=== PATIENT | male | born 1930 | race Caucasian/White ===

== ENCOUNTER → 2016-04-20 | Outpatient (CLI) | payer BC ==
[~2016-04-20] MED LIST: ACET-24 PO; ACET325T96 PO; ALFU10TA30 PO; ATOR-24 PO; CLC100 PO; DLCS PR; LISI-729 PO; OXYC-57 PO; PRT40 PO; RXC5 PO; SAW450CA5 PO; SAWPOW; WARF2.5T8 PO
== END | disposition home or self-care (01) ==
LOC: C.LABMFLN 07:57
PROVIDERS: ATTEND Family Medicine
DX: R10.9 Unspecified abdominal pain (principal)

== ENCOUNTER → 2016-04-27 | Outpatient (CLI) | payer BC ==
[2016-04-27 13:32] LABS: INR 2.3 (0.9-1.1); PROTHROMBIN TIME (PATIENT) 25.1 SECONDS (9.0-12.0)
== END | disposition home or self-care (01) ==
LOC: C.LABMFLN 11:30
PROVIDERS: ATTEND Internal Medicine Cardiovascular Disease
DX: I48.92 Unspecified atrial flutter (principal)

== ENCOUNTER → 2016-06-25 | Outpatient (CLI) | payer BC ==
[~2016-06-25] MED LIST changes: +ALFU10TA2 PO; -ALFU10TA30 PO
[2016-06-25 13:21] LABS: INR 3.5 (0.9-1.1); PROTHROMBIN TIME (PATIENT) 39.2 SECONDS (9.0-12.0)
[2016-06-25 13:33] LABS: HEMATOCRIT 40.3 % (42-52); MEAN CELL VOLUME 97.8 fL (80-100); MEAN CORPUSCULAR HEMOGLOBIN 31.3 pg (25-34); MEAN PLATELET VOLUME 10.7 fL (7.4-10.4); PLATELET COUNT 177 K/uL (130-400); RED BLOOD COUNT 4.12 M/uL (4.7-6.1); WHITE BLOOD COUNT 7.05 K/uL (4.8-10.8)
[2016-06-25 14:14] LABS: ALT/SGPT 38 U/L (12-78); AST/SGOT 20 U/L (15-37); BLOOD UREA NITROGEN 19 mg/dl (7-18); BUN/CREATININE RATIO 26.2 (10-20); CALCIUM 8.4 mg/dl (8.5-10.1); CARBON DIOXIDE 27 mmol/L (21-32); CHLORIDE 109 mmol/L (98-107); CHOLESTEROL 102 mg/dl (0-200); CREATININE 0.72 mg/dl (0.60-1.40); GLUCOSE 80 mg/dl (70-99); SODIUM 144 mmol/L (136-145)
[2016-06-25 14:16] LABS: CHOLESTEROL/HDL RATIO 1.8; HDL CHOLESTEROL 56 mg/dl; LDL CHOLESTEROL CALCULATED 36 mg/dl; TRIGLYCERIDES 52 mg/dl (0-150); VERY LOW DENSITY LIPOPROT CALC 10 mg/dl
== END | disposition home or self-care (01) ==
LOC: C.LABMFLN 08:46
PROVIDERS: ATTEND Internal Medicine Cardiovascular Disease
DX: I48.92 Unspecified atrial flutter (principal); I71.2 Thoracic aortic aneurysm, without rupture; I25.10 Atherosclerotic heart disease of native coronary artery without angina pectoris; E78.00 Pure hypercholesterolemia, unspecified; I42.9 Cardiomyopathy, unspecified

== ENCOUNTER 2016-08-16 06:12 | Inpatient (IN) | payer BC, OTHER ==
[2016-07-18 09:55] VITALS: BMI 27.0
--- NOTE | 2016-07-18 10:27 | PAT Medication Instructions ---
Service Date July 18, 2016. Current Home Medication List Acetaminophen Tab (Tylenol), 650 MG PO TID PRN for Pain Alfuzosin Hcl (Uroxatral), 10 MG PO QPM Atorvastatin (Lipitor), 40 MG PO HS Lisinopril (Zestril), 5 MG PO QAM Saw Mayetta (Serenoa Repens) (Saw Mayetta), 450 MG PO QPM Warfarin Sod (Jantoven), 2.5 MG PO 2XWEEK Warfarin Sod (Jantoven), 1.25 MG PO 5XWEEK Medication Instructions For Your Scheduled Surgery -Instructions to be given by Cardiology: Warfarin Sod (Jantoven) - Hold the following medications 2 weeks prior to surgery: Saw Mayetta (Serenoa Repens) (Saw Mayetta), 450 MG PO QPM - Hold the following medications the morning of surgery: Lisinopril (Zestril), 5 MG PO QAM - Take the following medications the morning of surgery with a sip of water OTHERWISE NOTHING TO EAT OR DRINK AFTER MIDNIGHT: Acetaminophen Tab (Tylenol), 650 MG PO TID PRN for Pain (may take if needed up to 4 hours piror to surgery) - Take the following medications as scheduled the night before surgery: Alfuzosin Hcl (Uroxatral), 10 MG PO QPM Atorvastatin (Lipitor), 40 MG PO HS If you have any questions please call us at [phone] or [phone] or [phone]
[2016-07-18 11:25] LABS: BASO % 0.2 %; BASO ABS # 0.01 K/uL (0-0.2); COMPLETE YES; EOS % 1.9 %; HEMATOCRIT 41.8 % (42-52); LYMPH % 18.8 %; MEAN CELL VOLUME 98.8 fL (80-100); MEAN CORPUSCULAR HEMOGLOBIN 30.7 pg (25-34); MEAN CORPUSCULAR HGB CONC 31.1 g/dl (32-36); MEAN PLATELET VOLUME 10.9 fL (7.4-10.4); MONO % 13.1 %; PLATELET COUNT 159 K/uL (130-400); RED BLOOD COUNT 4.23 M/uL (4.7-6.1); WHITE BLOOD COUNT 5.33 K/uL (4.8-10.8)
[2016-07-18 11:27] LABS: URINE APPEARANCE CLEAR (CLEAR); URINE BILIRUBIN NEG (NEG); URINE COLOR YELLOW; URINE EPITHELIAL CELL AUTO 0-5 /lpf (0-5); URINE NITRITE NEG (NEG); URINE SPECIFIC GRAVITY 1.023 (1.000-1.030); UROBILINOGEN NEG (NEG); ZZUR CULT IF INDIC CLEAN CATCH NO
[2016-07-18 11:29] LABS: MANUAL MICROSCOPIC REQUIRED? NO; REVIEW REQ? NO
--- NOTE | 2016-07-18 11:31 | DIAGNOSTIC IMAGING REPORT ---
CHEST PREADMISSION(PA/LAT) CLINICAL HISTORY: Preoperative evaluation. COMPARISON STUDY: Chest CT December 24, 2014. FINDINGS: Lung volumes are normal. There is no pneumothorax or pleural effusion. There is no consolidation to suggest pneumonia. There is no evidence of pulmonary edema. Moderate cardiomegaly is unchanged. An aortic stent is partially imaged. IMPRESSION: 1. No acute cardiopulmonary findings. 2. Moderate cardiomegaly. Electronically signed by: Alberto Quan M.D. 07/18/2016 11:29 AM Dictated Date/Time: 07/18/2016 11:23 AM
[2016-07-18 11:35] LABS: INR 1.5 (0.9-1.1); PARTIAL THROMBOPLASTIN RATIO 1.2; PROTHROMBIN TIME (PATIENT) 16.7 SECONDS (9.0-12.0)
[2016-07-18 12:34] LABS: ESTIMATED AVERAGE GLUCOSE 123 mg/dl; HA1C FLAG Normal (Normal)
[2016-07-18 13:07] LABS: BUN/CREATININE RATIO 26.9 (10-20); CREATININE 0.85 mg/dl (0.60-1.40); POTASSIUM 4.2 mmol/L (3.5-5.1)
[2016-07-18 13:10] LABS: CALCIUM 8.7 mg/dl (8.5-10.1)
--- NOTE | 2016-08-15 10:44 | History and Physical ---
History & Physical Date Aug 15, 2016. Chief Complaint Right knee pain History of Present Illness The patient is a 86 year old male with complaints of Additional History Kidney Disease: Yes (kidney stones) Heart Disease: Yes (Atrial fibrillation/flutter) Other: Hyperlipidemia, enlarged prostate Allergies Coded Allergies: Penicillins (Verified Allergy, Unknown, HIVES, 07/18/16) Home Medications Scheduled Alfuzosin Hcl (Uroxatral), 10 MG PO QPM Atorvastatin (Lipitor), 40 MG PO HS Lisinopril (Zestril), 5 MG PO QAM Saw Berwind (Serenoa Repens) (Saw Berwind), 450 MG PO QPM Warfarin Sod (Jantoven), 2.5 MG PO 2XWEEK Warfarin Sod (Jantoven), 1.25 MG PO 5XWEEK Scheduled PRN Acetaminophen Tab (Tylenol), 650 MG PO TID PRN for Pain Physical Examination Skin: warm/dry Eyes: normal inspection, EOMI ENT: normal ENT inspection Head: normocephalic Neck: supple, no adenopathy Respiratory/Chest: lungs clear, normal breath sounds Cardiovascular: regular rate, rhythm Abdomen / GI: normal bowel sounds Extremities: normal inspection (Right knee neutrally aligned, medial and lateral joint line tenderness, ROM ~ 0-120) Neurologic/Psych: no motor/sensory deficits Addiitonal Comments: Xrays: 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
[~2016-08-16] VITALS: Ht 182.9 cm; Wt 92.4 kg
[2016-08-16] VITALS (8 sets, daily range): BP systolic 96–142; BP diastolic 59–107; PULSE 56–82; TEMP 36–37.2; O2SAT 94–100; Ht 182.9 cm; Wt 92.4 kg
[~2016-08-16 06:12] MED LIST changes: -ACET-24 PO; +ACETAMINOPHEN 500 MG TAB PO SCH; -ALFU10TA2 PO; +ALFU10TA30 PO; -CLC100 PO; +CLINDAMYCIN 600 MG/54 ML D5W 54 ML IV SCH; +CeleBREX 200 MG CAP PO SCH; +DEXAMETHASONE 4 MG TAB PO SCH; -DLCS PR; +FAMOTIDINE 20 MG TAB PO SCH; +GABAPENTIN 300 MG CAP PO SCH; +LACTATED RINGER'S 1000ML 1,000 ML IV SCH; +LACTATED RINGER'S 1000ML 500 ML IV ONE; +LACTATED RINGER'S 1000ML IV SCH; +METOCLOPRAMIDE HCL 10 MG TAB PO SCH; -OXYC-57 PO; +OXYCODONE HCL 10 MG TABCR (OXYCONTIN) PO SCH; -PRT40 PO; +ROPIVACAINE 5MG/ML 30 ML 150 MG, BUPIVACAINE/EPINEPHR 0.5% MPF 30 ML, KETOROLAC TROMETH... INFIL SCH; -RXC5 PO; -SAWPOW
[2016-08-16] MEDS ORDERED: BUPIVACAINE 0.5 % 5 MG/1 ML PF 10ML VIAL ONE (06:16)
[2016-08-16] MEDS ORDERED: BUPIVACAINE 0.25% 30 ML VIAL ONE (06:16)
[2016-08-16] MEDS ORDERED: ORTHO JOINT ANESTHETIC ONE (06:54)
[2016-08-16] MEDS ORDERED: POVIDONE-IODINE OP SOLN 30 ML BTL ONE ×2 (06:55→08:14)
[2016-08-16] MEDS ORDERED: MIDAZOLAM HCL 1 MG/ML 2ML VIAL ONE (06:55)
[2016-08-16] MEDS ORDERED: FENTANYL CITRATE INJ 50 MCG/1 ML 2 ML VIAL ONE (06:55)
[2016-08-16] MEDS ORDERED: BACITRACIN 50000 UNIT VIAL ONE (06:55)
[2016-08-16 07:05] LABS: INR 1.3 (0.9-1.1); PARTIAL THROMBOPLASTIN RATIO 1.1; PROTHROMBIN TIME (PATIENT) 13.5 SECONDS (9.0-12.0)
--- NOTE | 2016-08-16 07:15 | History & Physical Bridge Note ---
H&P Re-Evaluation Bridge Note: I have examined the patient, reviewed the History & Physical and in the interval since the performance of the History & Physical I have noted the following changes of clinical significance: No changes noted
[2016-08-16] MEDS ORDERED: HYDROmorphone INJ 2 MG/ML SYR/VIAL IV PRN (09:15)
[2016-08-16] MEDS ORDERED: PHENYLEPHRINE 100MCG/ML 5ML SYR IV PRN (09:15)
[2016-08-16] MEDS ORDERED: EpHEDrine SULFATE INJ 50 MG/ML AMP IV PRN (09:15)
[2016-08-16] MEDS ORDERED: ONDANSETRON INJ 2 MG/ML 2 ML VIAL IV PRN ×2 (09:15→09:45)
[2016-08-16] MEDS ORDERED: ATROPINE SULFATE 0.1 MG/ML 5ML SYR IV PRN (09:15)
--- NOTE | 2016-08-16 09:18 | [facility] Operative Report ---
Operative Report Operative Date Aug 16, 2016. Pre-Operative Diagnosis Right Knee Arthritis Procedure(s) Performed Patient's right leg was prepped and draped in usual sterile manner. The limb was exsanguinated with an Esmarch bandage and the tourniquet was inflated to 350 mmHg. Longitudinal incision was made some retained sutures up and dissected all masses usually hemostasis. A median parapatellar incision was made the patella was everted and he was flexed. Fat pad was removed and osteophytes removed and the medial face the tibia was cleared using a Warner elevator and a blunt Alonso. Next medullary alignment guide was placed and the proximal tibial cut was made using oscillating saw. The proximal tibial fragment was removed. Next the drill was utilized to gain access to the femoral canal. The intramedullary alignment guide was placed and a distal femoral cutting block was placed and a distal femoral cut was made at removal of the intramedullary alignment guide. This was removed and the guide was utilized to place drill holes for the femoral cutting guide. Size 5 femoral block was chosen and the distal femoral cuts were made. All bone fragments removed. Next the notch. Using the notch cutting guide. This bone was reserved and lamina inspector open die was utilized to expose the menisci was removed using sharp dissection. Remnants of the anterior cruciate ligament PCL were removed as well. Following this the proximal tibia was prepared using a punch and a mallet the size 5 tibial component was chosen and trial reduction was carried out with a size 11 polyethylene. Following this the patella was prepared for size 39 patella was chosen and sized to be used. All trials were removed joint mix was injected pulsatile irrigation used throughout the bone ends were dried and the final components were cemented into position. Following hardening the cement was closed using #1 Vicryl 0 Dexon and is applying sterile dressing of [place] was applied a Hemovac drain had been inserted Mr. Sweeney was utilized throughout the case including prepping and draping surgical scrub tech wound closure and dressing application. Surgeon Dr. Александр Nicholas Utility Tech Surgeon(s) Bert Sweeney PA-C Estimated Blood Loss 10ML Findings OA Specimens A. Right Knee Bone and Tissue I attest to the content of the Intraoperative Record and any orders documented therein. Any exceptions are noted below.
[2016-08-16] MEDS ORDERED: MAGNESIUM HYDROXIDE SUSP 30 ML UDC PO PRN (09:45)
[2016-08-16] MEDS ORDERED: BISACODYL 10 MG SUPP PR PRN (09:45)
[2016-08-16] MEDS ORDERED: ALUMINUM/MAGNESIUM/SIMETH (MAALOX MAX) 30 ML UDC PO PRN (09:45)
[2016-08-16] MEDS ORDERED: OXYCODONE HCL IR 5 MG TAB (IMMEDIATE RELEASE) PO PRN (09:45)
[2016-08-16] MEDS ORDERED: MoRPHine SULFATE 2 MG/ML CARP IV PRN (09:45)
[2016-08-16] MEDS ORDERED: TAMSULOSIN HCL 0.4 MG CAP PO PRN (09:45)
--- NOTE | 2016-08-16 11:06 | DIAGNOSTIC IMAGING REPORT ---
RIGHT KNEE 2 VIEWS History: Right total knee arthroplasty. Degenerative arthritis. Postop. FINDINGS: The patient is status post a right total knee arthroplasty. The hardware is intact. No fracture or dislocation. Skin kip and surgical drains are in place. IMPRESSION: Right total knee arthroplasty. No evidence for hardware complication. Electronically signed by: Matthew Walters M.D. 08/16/2016 11:05 AM Dictated Date/Time: 08/16/2016 11:04 AM
--- NOTE | 2016-08-16 11:52 | Anesthesiology Progress Note ---
Anesthesia Post Op Note Date & Time Aug 16, 2016 at 11:52 Vital Signs Pain Intensity: 5 Vital Signs Past 12 Hours Date Time Temp Pulse Resp B/P (MAP) Pulse Ox O2 Delivery O2 Flow Rate FiO2 08/16/16 10:50 36.8 75 16 115/85 96 Nasal Cannula 4 08/16/16 10:40 36.8 76 16 116/86 99 Nasal Cannula 4 08/16/16 10:30 76 16 115/81 98 Nasal Cannula 4 08/16/16 10:20 72 16 124/90 97 Nasal Cannula 4 08/16/16 10:00 73 16 130/86 96 Mask 10 08/16/16 09:50 73 16 132/81 98 Mask 10 08/16/16 09:40 36.8 64 16 125/72 98 Mask 10 08/16/16 06:50 36.5 82 20 142/107 94 Room Air Notes Mental Status: alert / awake / arousable, participated in evaluation Pt Amnestic to Procedure: Yes Nausea / Vomiting: adequately controlled Pain: adequately controlled Airway Patency, RR, SpO2: stable & adequate BP & HR: stable & adequate Hydration State: stable & adequate Anesthetic Complications: no major complications apparent
[2016-08-16] MEDS: D5W AND 1/2NSS + 20MEQ KCL 1,000 ML IV SCH ×2 (12:40→21:54)
[2016-08-16] MEDS: FERROUS GLUCONATE 324 MG TAB PO SCH ×2 (12:41→17:52)
[2016-08-16] MEDS: ACETAMINOPHEN 500 MG TAB PO SCH ×2 (14:06→21:56)
[2016-08-16] MEDS: CLINDAMYCIN IV 600 MG in DEXTROSE 5% 50ML 50 ML IV SCH ×2 (15:57→23:28)
[2016-08-16] MEDS ORDERED: WARFARIN SOD 2.5 MG TAB PO ONE (16:00)
[2016-08-16] MEDS: ALFUZosin TAB 10 MG TAB PO SCH (21:55)
[2016-08-16] MEDS: ATORVASTATIN 40 MG TAB PO SCH (21:56)
[2016-08-16] MEDS: DOCUSATE SODIUM 100 MG CAP PO SCH (21:56)
[2016-08-17] VITALS (9 sets, daily range): BP systolic 84–104; BP diastolic 52–66; PULSE 47–67; TEMP 36.3–36.5; O2SAT 92–97
[2016-08-17] MEDS: ACETAMINOPHEN 500 MG TAB PO SCH ×3 (05:37→22:00)
[2016-08-17 05:58] LABS: HEMATOCRIT 31.5 % (42-52); MEAN CELL VOLUME 95.7 fL (80-100); MEAN CORPUSCULAR HEMOGLOBIN 31.3 pg (25-34); MEAN CORPUSCULAR HGB CONC 32.7 g/dl (32-36); MEAN PLATELET VOLUME 11.4 fL (7.4-10.4); PLATELET COUNT 121 K/uL (130-400); RED BLOOD COUNT 3.29 M/uL (4.7-6.1); WHITE BLOOD COUNT 11.01 K/uL (4.8-10.8)
[2016-08-17 06:35] LABS: BUN/CREATININE RATIO 21.2 (10-20); CALCIUM 8.2 mg/dl (8.5-10.1); CREATININE 1.5 mg/dl (0.60-1.40); POTASSIUM 4.3 mmol/L (3.5-5.1)
[2016-08-17] MEDS: D5W AND 1/2NSS + 20MEQ KCL 1,000 ML IV SCH (07:56)
[2016-08-17] MEDS: PANTOprazole SOD 40 MG TAB PO SCH (08:14)
[2016-08-17] MEDS: LISINOPRIL 5 MG TAB PO SCH (08:14)
[2016-08-17] MEDS: FERROUS GLUCONATE 324 MG TAB PO SCH ×3 (08:14→17:42)
[2016-08-17] MEDS: DOCUSATE SODIUM 100 MG CAP PO SCH ×2 (08:15→20:34)
[2016-08-17] MEDS: MULTIVITAMIN TAB PO SCH (08:15)
--- NOTE | 2016-08-17 09:42 | Orthopedic Progress Note ---
Orthopedic Progress Note Date of Service Aug 17, 2016. Subjective Post OP Day: 1 Reports: feeling well Objective N/V intact, dressing C/D/I (Hemovac in place), toes mobile Date Time Temp Pulse Resp B/P (MAP) Pulse Ox O2 Delivery O2 Flow Rate FiO2 08/17/16 07:54 Room Air 08/17/16 07:16 36.4 50 18 98/63 (75) 95 08/17/16 05:41 103/61 (75) 08/17/16 03:25 36.3 55 14 92/53 (66) 94 Room Air 08/16/16 23:06 36.0 59 16 103/68 (80) 94 Room Air 08/16/16 20:45 Room Air 08/16/16 19:38 36.3 56 18 103/65 (78) 100 Nasal Cannula 4.0 08/16/16 19:37 99 Nasal Cannula 2.0 08/16/16 15:38 37.2 58 16 101/59 (73) 100 Nasal Cannula 4.0 08/16/16 15:37 Nasal Cannula 4.0 08/16/16 13:34 73 19 96/62 (73) 94 Nasal Cannula 4.0 08/16/16 12:19 73 18 124/85 (98) 97 Nasal Cannula 4.0 08/16/16 11:50 72 16 129/83 (98) 97 Nasal Cannula 4.0 08/16/16 11:20 Nasal Cannula 4.0 08/16/16 11:20 Nasal Cannula 4.0 08/16/16 10:50 36.8 75 16 115/85 96 Nasal Cannula 4 08/16/16 10:40 36.8 76 16 116/86 99 Nasal Cannula 4 08/16/16 10:30 76 16 115/81 98 Nasal Cannula 4 08/16/16 10:20 72 16 124/90 97 Nasal Cannula 4 08/16/16 10:00 73 16 130/86 96 Mask 10 08/16/16 09:50 73 16 132/81 98 Mask 10 Laboratory Results 24 Hours: Test 08/17/16 05:03 Hematocrit 31.5 % Hemoglobin 10.3 g/dL Assessment & Plan Assessment: 86 yo male stable POD #1 s/p right TKA Plan: 1. Med management 2. DVT prophylaxis- resume Coumadin, SCDs 3. PT/O 4. D/C planning- pt interested in [place]
[2016-08-17 11:37] LABS: INR 1.5 (0.9-1.1); PROTHROMBIN TIME (PATIENT) 16.7 SECONDS (9.0-12.0)
--- NOTE | 2016-08-17 11:52 | Discharge Instructions ---
Discharge Instructions Date of Service Aug 17, 2016. Admission Reason for Admission: Right Knee Osteoarthritis Discharge Discharge Diagnosis / Problem: Right knee arthritis Discharge Goals Goal(s): Decrease discomfort, Improve function Activity Recommendations Activity Limitations: as noted below Weightbearing Status: Right weightbearing (as tolerated) . Instructions / Follow-Up Instructions / Follow-Up ACTIVITY RECOMMENDATIONS: SELF CARE INSTRUCTIONS AFTER TOTAL KNEE REPLACEMENT A. You may need to continue a physical therapy program after discharge from the hospital. There are several options available to you. Your doctor will assist you in selecting the best one for you. 1. An out-patient facility 2 to 3 times a week for therapy or home therapy. 2. Continue working on all exercises taught to you in the hospital. Your goals should be to increase bending of your knee to 90 degrees and beyond and to fully straighten your knee. B. You may progress at your own pace from walking with a walker or crutches to a cane; then to no assistive devices. C. Make walking a part of your daily routine. Be up as much as comfortable with rest periods throughout the day. Rest with leg elevation is very important. Use the ice wrap frequently for the first 3-4 weeks. D. There are no restrictions on activities. You may ride in a car, shop, participate in communications executive and all social activities. E. Wear the long elastic stockings (LISA hose) 20 hours a day for 2 weeks after surgery. They can be removed several times a day for laundering and for a bath. F. You may shower, no tub baths until cleared by your doctor. SPECIAL CARE INSTRUCTIONS: VERY IMPORTANT TO READ AND REVIEW A. There are a few signs you need to watch for after you are home. Call [facility] if you notice any of the followin. Increased severe knee pain. Some pain is expected especially when you exercise. 2. Increased swelling in your leg or knee; pain or swelling of the calf muscle in either lower leg. 3. Any fluid drainage from the incision. 4. Shortness of breath or chest pain. B. Please call [facility] at if you have any concerns or questions about your operation or recovery. The doctor or his nurse will return your call promptly. C. You must take antibiotics before dental work, bladder, bowel or other surgery. Your doctor will provide you with a permanent care to carry describing this precaution. IMPORTANT: * REMEMBER TO TAKE ASPIRIN, 81 MG, TWICE DAILY FOR 4 WEEKS UNLESS OTHERWISE DIRECTED. THIS IS YOUR BLOOD THINNER. * HIGH RISK PATIENTS MAY BE PRESCRIBED A STRONGER BLOOD THINNER. THIS WILL BE PROVIDED AT DISCHARGE. * CALL IF INCREASED PAIN, REDNESS, DRAINAGE OR FEVER GREATER THAT 101. * WEAR LISA HOSE 20 HOURS PER DAY FOR 2 WEEKS. Silverlon- This is a large adhesive bandage that contains silver ions. This helps your incision heal by fighting off bacteria and protecting it from the outside environment. You are permitted to shower with this dressing. This will remain on your incision for 7 days and then should be removed. Some visible blood or drainage through the dressing window is normal. If there is significant drainage or leaking noted before the 7 days notify your doctor's office immediately. Once removed, keep incision clean and dry. If there is any drainage or redness noted, please call your surgeon. FOLLOW UP VISIT: If appointment is not already scheduled: Please call [facility] to make a follow-up appointment for 2 weeks after your surgery at . Current Hospital Diet Patient's current hospital diet: Regular Diet Discharge Diet Recommended Diet: Regular Diet Procedures Procedures Performed: Right Total Knee Arthroplasty Pending Studies Studies pending at discharge: no Laboratory Results Hemoglobin A1c Test 07/18/16 10:47 Range/Units Estimated Average Glucose 123 mg/dl Hemoglobin A1c 5.9 H 4.5-5.6 % Lipid Panel Test 06/25/16 10:35 Range/Units Triglycerides Level 52 0-150 mg/dl Cholesterol Level 102 0-200 mg/dl HDL Cholesterol 56 mg/dl Cholesterol/HDL Ratio 1.8 LDL Cholesterol, Calculated 36 mg/dl Medical Emergencies . Who to Call and When: Medical Emergencies: If at any time you feel your situation is an emergency, please call 911 immediately. . Non-Emergent Contact Non-Emergency issues call your: Surgeon Call Non-Emergent contact if: temperature is above 101.5, your pain is not controlled, wound has increased drainage, wound has increased redness . "Provider Documentation" section prepared by Jseus Ardon PA-C. . VTE Core Measure Inpt VTE Proph given/why not?: Warfarin (Coumadin), Naseem Da Silva, SCD's [place] Drug Monitoring Program Search Results: patient reviewed within database, no issues identified
[2016-08-17] MEDS ORDERED: LIDOCAINE HCL 2% JELLY 30 ML TUBE EXT ONE (13:49)
[2016-08-17] MEDS ORDERED: WARFARIN SOD 1 MG TAB PO SCH (16:00)
[2016-08-17] MEDS: ATORVASTATIN 40 MG TAB PO SCH (20:34)
[2016-08-17] MEDS: ALFUZosin TAB 10 MG TAB PO SCH (20:34)
[2016-08-18] MEDS: ACETAMINOPHEN 500 MG TAB PO SCH ×3 (05:47→21:25)
[2016-08-18 07:28] VITALS: BP 107/66; PULSE 62; TEMP 36.3; O2SAT 98
[2016-08-18 07:28] LABS: INR 1.6 (0.9-1.1); PROTHROMBIN TIME (PATIENT) 17.5 SECONDS (9.0-12.0)
[2016-08-18 08:26] LABS: BUN/CREATININE RATIO 28.5 (10-20); CALCIUM 8.2 mg/dl (8.5-10.1); CREATININE 1.1 mg/dl (0.60-1.40); POTASSIUM 4.1 mmol/L (3.5-5.1)
[2016-08-18] MEDS: FERROUS GLUCONATE 324 MG TAB PO SCH ×3 (08:48→17:30)
[2016-08-18] MEDS: PANTOprazole SOD 40 MG TAB PO SCH (08:49)
[2016-08-18] MEDS: DOCUSATE SODIUM 100 MG CAP PO SCH ×2 (08:49→21:25)
[2016-08-18] MEDS: MULTIVITAMIN TAB PO SCH (08:49)
[2016-08-18] MEDS: LISINOPRIL 5 MG TAB PO SCH (08:49)
--- NOTE | 2016-08-18 08:56 | Orthopedic Progress Note ---
Orthopedic Progress Note Date of Service Aug 18, 2016. Subjective Post OP Day: 2 Reports: feeling well, Denies: chest pain, SOB, nausea / vomiting, light headedness, calf pain Objective calves soft nontender, N/V intact, dressing C/D/I, A&O x3, toes mobile Date Time Temp Pulse Resp B/P (MAP) Pulse Ox O2 Delivery O2 Flow Rate FiO2 08/18/16 07:28 36.3 62 19 107/66 (80) 98 Room Air 08/17/16 23:45 Room Air 08/17/16 23:06 36.5 57 22 101/65 (77) 97 Room Air 08/17/16 20:27 67 100/66 (77) 08/17/16 15:35 96 Room Air 08/17/16 14:55 36.3 53 16 104/58 (73) 96 Room Air 08/17/16 11:45 36.3 60 18 90/52 (65) 92 Room Air 08/17/16 10:56 47 Laboratory Results 24 Hours: Test 08/17/16 11:14 08/18/16 07:04 Prothromb Time International Ratio 1.5 1.6 Prothrombin Time 16.7 SECONDS 17.5 SECONDS Assessment & Plan Assessment: 86 yo male stable POD #2 s/p right TKA Plan: 1. Med management 2. DVT prophylaxis- resume Coumadin, SCDs 3. PT/O 4. D/C planning- pt interested in [place] or [facility]; waiting on authorization. Inhouse Planning Pain Management: Ultram, Morphine, PO Tylenol, Oxy IR DVT Prophylaxis: TEDs, SCDs, Coumadin Discharge Planning Discharge Planning: snf facility Pain Management: PO Tylenol, Oxy IR DVT Prophylaxis: TEDs, Coumadin Therapy: Physical Therapy
--- NOTE | 2016-08-18 09:03 | Discharge Instructions ---
Discharge Instructions Date of Service Aug 18, 2016. Admission Reason for Admission: Right Knee Osteoarthritis Discharge Discharge Diagnosis / Problem: Right Knee Djd Discharge Goals Goal(s): Decrease discomfort, Improve function Activity Recommendations Activity Level: Assistance Required Therapies: Physical Therapy (TKA Protocol), Occupational Therapy (ADL's and transfers) Weightbearing Status: Right weightbearing (as tolerated) . Additional Information Patient informed of condition: Yes Advance Directives: Yes DNR: No Level of Care: Skilled Communicable Disease: No Prognosis: Stable Moran Catheter: No Instructions / Follow-Up Instructions / Follow-Up ACTIVITY RECOMMENDATIONS: SELF CARE INSTRUCTIONS AFTER TOTAL KNEE REPLACEMENT A. You may need to continue a physical therapy program after discharge from the hospital. There are several options available to you. Your doctor will assist you in selecting the best one for you. 1. An out-patient facility 2 to 3 times a week for therapy or home therapy. 2. Continue working on all exercises taught to you in the hospital. Your goals should be to increase bending of your knee to 90 degrees and beyond and to fully straighten your knee. B. You may progress at your own pace from walking with a walker or crutches to a cane; then to no assistive devices. C. Make walking a part of your daily routine. Be up as much as comfortable with rest periods throughout the day. Rest with leg elevation is very important. Use the ice wrap frequently for the first 3-4 weeks. D. There are no restrictions on activities. You may ride in a car, shop, participate in deer farm worker and all social activities. E. Wear the long elastic stockings (LISA hose) 20 hours a day for 2 weeks after surgery. They can be removed several times a day for laundering and for a bath. F. You may shower, no tub baths until cleared by your doctor. SPECIAL CARE INSTRUCTIONS: VERY IMPORTANT TO READ AND REVIEW A. There are a few signs you need to watch for after you are home. Call [facility] if you notice any of the followin. Increased severe knee pain. Some pain is expected especially when you exercise. 2. Increased swelling in your leg or knee; pain or swelling of the calf muscle in either lower leg. 3. Any fluid drainage from the incision. 4. Shortness of breath or chest pain. B. Please call [facility] at if you have any concerns or questions about your operation or recovery. The doctor or his nurse will return your call promptly. C. You must take antibiotics before dental work, bladder, bowel or other surgery. Your doctor will provide you with a permanent care to carry describing this precaution. IMPORTANT: * CONTINUE YOUR COUMADIN DAILY AND HAVE YOUR INR CHECKED REGULARLY. * CALL IF INCREASED PAIN, REDNESS, DRAINAGE OR FEVER GREATER THAT 101. * WEAR LISA HOSE 20 HOURS PER DAY FOR 2 WEEKS. * Silverlon- This is a large adhesive bandage that contains silver ions. This helps your incision heal by fighting off bacteria and protecting it from the outside environment. You are permitted to shower with this dressing. This will remain on your incision for 7 days and then should be removed. Some visible blood or drainage through the dressing window is normal. If there is significant drainage or leaking noted before the 7 days notify your doctor's office immediately. Once removed, keep incision clean and dry. If there is any drainage or redness noted, please call your surgeon. . FOLLOW UP VISIT: If appointment is not already scheduled: Please call [facility] to make a follow-up appointment for 2 weeks after your surgery at . Current Hospital Diet Patient's current hospital diet: Regular Diet Discharge Diet Recommended Diet: Regular Diet Procedures Procedures Performed: Right Total Knee Arthroplasty Pending Studies Studies pending at discharge: no Physician Orders On Transfer Dressing Changes: Silverlon dressing change as per above instructions Vital Signs: routine Laboratory Results Hemoglobin A1c Test 07/18/16 10:47 Range/Units Estimated Average Glucose 123 mg/dl Hemoglobin A1c 5.9 H 4.5-5.6 % Lipid Panel Test 06/25/16 10:35 Range/Units Triglycerides Level 52 0-150 mg/dl Cholesterol Level 102 0-200 mg/dl HDL Cholesterol 56 mg/dl Cholesterol/HDL Ratio 1.8 LDL Cholesterol, Calculated 36 mg/dl Medical Emergencies . Who to Call and When: Medical Emergencies: If at any time you feel your situation is an emergency, please call 911 immediately. . Non-Emergent Contact Non-Emergency issues call your: Surgeon Call Non-Emergent contact if: temperature is above 101.5, your pain is not controlled, your pain is worsening, wound has increased drainage, wound has increased redness . . "Provider Documentation" section prepared by Bert Sweeney. . Core Measure Problem Core Measures: None [place] Drug Monitoring Program Search Results: patient reviewed within database, no issues identified
[2016-08-18] MEDS ORDERED: CLC100 PO (09:06)
[2016-08-18] MEDS ORDERED: DLCS PR (09:06)
[2016-08-18] MEDS ORDERED: RXC5 PO (09:06)
[2016-08-18] MEDS ORDERED: PRT40 PO (09:06)
[2016-08-18] MEDS ORDERED: ACET-24 PO (09:06)
[2016-08-18 15:42] VITALS: BP 103/62; PULSE 56; TEMP 36.4; O2SAT 99
[2016-08-18] MEDS ORDERED: WARFARIN SOD 2 MG TAB PO SCH (16:00)
[2016-08-18] MEDS: TRAMADOL HCL 50 MG TAB PO PRN ×2 (19:38→23:42)
[2016-08-18] MEDS: ATORVASTATIN 40 MG TAB PO SCH (21:25)
[2016-08-18] MEDS: ALFUZosin TAB 10 MG TAB PO SCH (21:25)
[2016-08-18 22:47] VITALS: BP 91/51; PULSE 66; TEMP 36.5; O2SAT 94
[2016-08-19 05:41] LABS: INR 1.6 (0.9-1.1); PROTHROMBIN TIME (PATIENT) 16.9 SECONDS (9.0-12.0)
[2016-08-19] MEDS: ACETAMINOPHEN 500 MG TAB PO SCH ×3 (05:49→21:34)
[2016-08-19 07:09] VITALS: BP 96/61; PULSE 64; TEMP 36.3; O2SAT 98
--- NOTE | 2016-08-19 08:17 | Orthopedic Progress Note ---
Orthopedic Progress Note Date of Service Aug 19, 2016. Subjective Post OP Day: 3 Reports: feeling well, pain controlled w PO medications, Denies: chest pain, SOB , nausea / vomiting, light headedness Additional Notes: Had some heel pain in the right heel overnight but is much better now since keeping it off of the bed. Objective calves soft nontender, N/V intact, dressing C/D/I, A&O x3, toes mobile Right heel NT; no obvious breakdown Date Time Temp Pulse Resp B/P (MAP) Pulse Ox O2 Delivery O2 Flow Rate FiO2 08/19/16 08:00 Room Air 08/19/16 07:09 36.3 64 19 96/61 (73) 98 Room Air 08/18/16 23:15 Room Air 08/18/16 22:47 36.5 66 16 91/51 (64) 94 Room Air 08/18/16 15:42 36.4 56 18 103/62 (76) 99 Room Air 08/18/16 15:30 Room Air 08/18/16 09:03 Room Air Laboratory Results 24 Hours: Test 08/19/16 05:08 Prothromb Time International Ratio 1.6 Prothrombin Time 16.9 SECONDS Assessment & Plan Assessment: 86 yo male stable POD #3 s/p right TKA Plan: Med management DVT prophylaxis- Coumadin, SCDs PT/OT D/C planning- pt interested in [place] or [facility]; waiting on authorization. Likely Saturday? Inhouse Planning Pain Management: Ultram, Morphine, PO Tylenol, Oxy IR DVT Prophylaxis: TEDs, SCDs, Coumadin Discharge Planning Discharge Planning: shelter facility Pain Management: PO Tylenol, Oxy IR DVT Prophylaxis: TEDs, Coumadin Therapy: Physical Therapy
[2016-08-19] MEDS: DOCUSATE SODIUM 100 MG CAP PO SCH ×2 (09:31→21:33)
[2016-08-19] MEDS: PANTOprazole SOD 40 MG TAB PO SCH (09:31)
[2016-08-19] MEDS: MULTIVITAMIN TAB PO SCH (09:31)
[2016-08-19] MEDS: FERROUS GLUCONATE 324 MG TAB PO SCH ×3 (09:31→18:31)
[2016-08-19] MEDS: LISINOPRIL 5 MG TAB PO SCH (09:32)
[2016-08-19 15:10] VITALS: BP 108/71; PULSE 61; TEMP 36.4; O2SAT 98
[2016-08-19] MEDS ORDERED: WARFARIN SOD 3 MG TAB PO SCH (16:00)
[2016-08-19] MEDS: ATORVASTATIN 40 MG TAB PO SCH (21:33)
[2016-08-19] MEDS: ALFUZosin TAB 10 MG TAB PO SCH (21:33)
[2016-08-19 23:03] VITALS: BP 123/77; PULSE 72; TEMP 36.7; O2SAT 98
[2016-08-20] MEDS: ACETAMINOPHEN 500 MG TAB PO SCH (05:37)
[2016-08-20 06:54] VITALS: BP 115/73; PULSE 76; TEMP 36.3; O2SAT 95
[2016-08-20] MEDS: FERROUS GLUCONATE 324 MG TAB PO SCH (07:24)
[2016-08-20] MEDS: MULTIVITAMIN TAB PO SCH (07:25)
[2016-08-20] MEDS: DOCUSATE SODIUM 100 MG CAP PO SCH (07:25)
[2016-08-20] MEDS: PANTOprazole SOD 40 MG TAB PO SCH (07:25)
[2016-08-20] MEDS: LISINOPRIL 5 MG TAB PO SCH (07:26)
--- NOTE | 2016-08-20 07:38 | Urology Consultation ---
History General Date of Service: Aug 20, 2016. Chief Complaint: urinary retention Primary Care Physician: Gonzalo Gutiérrez M.D. Pt seen a urologist before?: Yes (Dr. Khan) If yes, why?: BPH History of Present Illness 86 yo male s/p right TKA. consulted for post-op UR. The pt has a hx of BPH for which he last saw Dr. Khan in September 2015. He is currently on alfuzosin at home. Attempted TOV yesterday, but rodriges catheter replaced after the pt had difficulty voiding. PVR ~300ml noted. Rodriges in place, draining clear, yellow urine this morning. The pt does report some baseline frequency, dribbling, and nocturia 3x per night at home. Laboratory Labs were reviewed and are within normal limits unless listed below. Labs are available in the chart and at [facility] Past History BPH, coronary artery disease, high cholesterol, kidney stones, osteoarthritis, other (a-flutter, AAA, iliac artery aneurysm, cardiomyopathy) Past Surgical History: TKR (right), other (endovascular repair of AAA and iliac artery aneurysm ) Family History diabetes, bone cancer, prostate cancer Social History Hx Tobacco Use In Past Year?: No Smoking: non-smoker Marital status: Housing status: lives with family Occupation status: retired Allergies Coded Allergies: Penicillins (Verified Allergy, Unknown, HIVES, 08/16/16) Medications Home Medications: Home Meds and Scripts Medications Dose Route/Sig Max Daily Dose Days Date Category Dose Instructions Pantoprazole Sodium (Pantoprazole) 40 Mg Tab 40 Mg PO QAM 10 08/18/16 Rx Docusate Sodium 100 Mg Cap 100 Mg PO BID 10 08/18/16 Rx Bisac-Evac (Bisacodyl) 10 Mg Supp 10 Mg IN DAILY PRN 10 08/18/16 Rx Oxycodone HCl 5 Mg Tab 5-10 Mg PO Q4H PRN 08/18/16 Rx Sb Non-Aspirin Extra Stre (Acetaminophen) 500 Mg Tab 1,000 Mg PO Q8H 30 08/18/16 Rx Uroxatral (Alfuzosin HCl) 10 Mg Tab 10 Mg PO QPM 07/18/16 Reported Jantoven (Warfarin Sodium) 2.5 Mg Tab 1.25 Mg PO 5XWEEK 07/18/16 Reported Saturday PM [place] ([place] ([place]ren[place] Repens)) 450 Mg Cap 450 Mg PO QPM 07/18/16 Reported Zestril (Lisinopril) 5 Mg Tab 5 Mg PO QAM 07/18/16 Reported Tylenol (Acetaminophen) 325 Mg Tab 650 Mg PO TID PRN 07/13/14 Reported Lipitor (Atorvastatin Calcium) 40 Mg Tab 40 Mg PO HS 07/13/14 Reported Jantoven (Warfarin Sodium) 2.5 Mg Tab 2.5 Mg PO 2XWEEK 07/13/14 Reported Saturdays PM Inpatient Medications: Current Inpatient Medications Medications (Trade) Dose Ordered Sig/Adam Route Start Time Stop Time Status Last Admin Dose Admin Alfuzosin HCl (Uroxatral Tab) 10 mg QPM PO 08/16/16 21:00 09/15/16 20:59 08/19/16 21:33 10 MG Atorvastatin Calcium (Lipitor Tab) 40 mg HS PO 08/16/16 21:00 09/15/16 20:59 08/19/16 21:33 40 MG Lisinopril (Zestril Tab) 5 mg QAM PO 08/17/16 09:00 09/16/16 08:59 08/19/16 09:32 5 MG Morphine Sulfate (MoRPHine SULFATE INJ) 2 mg Q4HWA PRN IV 08/16/16 09:45 08/30/16 09:44 Oxycodone HCl (Roxicodone Immediate Rel Tab) 1 TABLET FOR PAIN RATING... Q4H PRN PO 08/16/16 09:45 08/30/16 09:44 Acetaminophen (Tylenol Tab) 1,000 mg Q8H PO 08/16/16 14:00 09/15/16 09:44 08/20/16 05:37 1,000 MG Magnesium Hydroxide (Milk Of Magnesia Susp) 30 ml Q6H PRN PO 08/16/16 09:45 09/15/16 09:44 Bisacodyl (Dulcolax Supp) 10 mg DAILY PRN IN 08/16/16 09:45 09/15/16 09:44 Docusate Sodium (coLACE CAP) 100 mg BID PO 08/16/16 21:00 09/15/16 20:59 08/19/16 21:33 100 MG Al Hydrox/Mg Hydrox/Simethicone (Maalox Max Susp) 15 ml Q4H PRN PO 08/16/16 09:45 09/15/16 09:44 Multivitamins (Multivitamin Tab) 1 tab QAM PO 08/17/16 09:00 09/16/16 08:59 08/19/16 09:31 1 TAB Ondansetron HCl (Zofran Inj) 4 mg Q6H PRN IV 08/16/16 09:45 09/15/16 09:44 Ferrous Gluconate (Ferrous Gluconate Tab) 324 mg TIDM PO 08/16/16 12:30 09/15/16 12:29 08/19/16 18:31 324 MG Pantoprazole Sodium (Protonix Tab) 40 mg QAM PO 08/17/16 09:00 09/16/16 08:59 08/19/16 09:31 40 MG Tramadol HCl (Ultram Tab) 1 tablet for pain rating... Q4H PRN PO 08/16/16 09:45 09/15/16 09:44 08/18/16 23:42 100 MG Review of Systems Review of Systems Constitutional: No fever, No chills Eyes: No double vision Neurological: No dizzy Endocrine: No excessive thirst Gastrointestinal: No abdominal pain, No nausea, No vomiting Cardiovascular: No chest pain Respiratory: No shortness of breath Skin: No rash Musculoskeletal: + arthritis Male : + urinary retention, No blood in urine Physical Exam Vital Signs: Vital Signs Past 12 Hours Date Time Temp Pulse Resp B/P (MAP) Pulse Ox O2 Delivery O2 Flow Rate FiO2 08/20/16 06:54 36.3 76 16 115/73 (87) 95 Room Air 08/20/16 00:00 Room Air 08/19/16 23:03 36.7 72 16 123/77 (92) 98 Room Air Physical Exam: General Appearance: no apparent distress Eyes: bilateral eyes normal inspection ENT: hearing grossly normal Neck: no JVD Respiratory/Chest: no respiratory distress, no accessory muscle use Cardiovascular: no JVD Extremities: normal inspection, + pertinent finding (dressing to right knee) Neurologic/Psychiatric: alert, normal mood/affect, oriented x 3 Skin: normal color Assessment & Plan Assessment & Plan A/P: BPH with urinary retention AFVSS. Will send a UC&S. Plan to leave rodriges catheter in place x 1 week. Will arrange for outpatient trial of void at that time. Continue Uroxatral. Thanks for the consult. Pt OK for d/c from [facility]. Thanks for allowing us to participate in this pt's care. Will arrange for outpatient f/u. Recall PRN issues.
--- NOTE | 2016-08-20 09:09 | Orthopedic Progress Note ---
Orthopedic Progress Note Date of Service Aug 20, 2016. Subjective Post OP Day: 4 Reports: feeling well, complaints (some knee pain this AM with ambulation; NT at rest ), Denies: chest pain, SOB, nausea / vomiting, light headedness, calf pain Additional Notes: Pt feeling well this AM. Seen by Urology this AM. No new complaints. Knee with some pain with ambulation but overall he states the knee is doing ok. Objective calves soft nontender, N/V intact, dressing C/D/I (Silverlon intact), A&O x3, toes mobile Sitting at bedside in chair. Knee flexed to approximately 90 degrees. Date Time Temp Pulse Resp B/P (MAP) Pulse Ox O2 Delivery O2 Flow Rate FiO2 08/20/16 07:25 Room Air 08/20/16 06:54 36.3 76 16 115/73 (87) 95 Room Air 08/20/16 00:00 Room Air 08/19/16 23:03 36.7 72 16 123/77 (92) 98 Room Air 08/19/16 15:15 Room Air 08/19/16 15:10 36.4 61 16 108/71 (83) 98 Room Air 08/19/16 10:25 36.3 64 19 98 Room Air Assessment & Plan Assessment: 86 yo male stable POD #3 s/p right TKA Urinary Retention - h/o BPH Plan: Appreciate Urology consult. Plan to keep rodriges for 1 week and f/u with Dr Khan. DVT prophylaxis- Coumadin, SCDs PT/OT D/C planning- Ok for discharge to SNF today. Inhouse Planning Pain Management: Ultram, Morphine, PO Tylenol, Oxy IR DVT Prophylaxis: TEDs, SCDs, Coumadin Discharge Planning Discharge Planning: retirement facility Pain Management: PO Tylenol, Oxy IR DVT Prophylaxis: TEDs, Coumadin Therapy: Physical Therapy
--- NOTE | 2016-08-20 11:40 | Discharge Summary ---
Orthopedic Discharge Summary Admission Date/Reason Aug 16, 2016 at 07:10 Right Knee Osteoarthritis. Discharge Date/Disposition Aug 20, 2016 [facility] facility Diagnosis Principal Diagnosis: Right Knee Djd Secondary Diagnoses/Problems: Urinary Retention with h/o BPH, AFib, Hyperlipdemia Procedure(s) Performed Right TKA Consultations Joyce GODWIN/Dr Khan Medication Reconciliation New Medications: Acetaminophen (Sb Non-Aspirin Extra Stre) 500 Mg Tab 1000 MG PO Q8H for 30 Days, #180 TAB Bisacodyl (Bisac-Evac) 10 Mg Supp 10 MG DC DAILY PRN for Constipation for 10 Days, SUPP Docusate Sodium (Docusate Sodium) 100 Mg Cap 100 MG PO BID for 10 Days, #20 CAP Oxycodone HCl (Oxycodone HCl) 5 Mg Tab 5-10 MG PO Q4H PRN for Pain, #60 TAB Pantoprazole (Pantoprazole Sodium) 40 Mg Tab 40 MG PO QAM for 10 Days, #10 TAB Continued Medications: Alfuzosin Hcl (Uroxatral) 10 Mg Tab 10 MG PO QPM, TAB Atorvastatin (Lipitor) 40 Mg Tab 40 MG PO HS, TAB Lisinopril (Zestril) 5 Mg Tab 5 MG PO QAM, TAB Saw [place] (Serenoa Repens) (Saw [place]) 450 Mg Cap 450 MG PO QPM Warfarin Sod (Jantoven) 2.5 Mg Tab 2.5 MG PO 2XWEEK, TAB Saturdays PM Warfarin Sod (Jantoven) 2.5 Mg Tab 1.25 MG PO 5XWEEK Saturday PM Discontinued Medications: Acetaminophen Tab (Tylenol) 325 Mg Tab 650 MG PO TID PRN for Pain, TAB Admission Physical Exam As per Admitting History & Physical. Hospital Course Patient was admitted on the above-noted date and had the above-noted surgery performed. He tolerated procedure well. On his first postoperative day he was feeling well and had no complaints. Vital signs were stable he was afebrile and dressings were clean dry and intact toes are mobile and neurovascular is intact. Patient later developed postoperative urinary retention and has a history of BPH. Moran catheter was inserted. Hemoglobin was 10.3 and his creatinine had bumped up slightly to 1.5. He was started on a physical therapy protocol and continued on DVT prophylaxis and pain management. He continued to remain stable throughout his stay. Plans were for him to go to a [facility] facility [facility] which [facility]. A bed was available but we were waiting on authorization from insurance. By 08/19/16, he had been authorized to go to the [facility] facility. His Moran catheter was discontinued and plans were for discharge if he was voiding on his own. However , he was unable to void on his own and after urinating approximately 50 mL, he had well over 300 residual. Moran catheter was reinserted and urology services consult. Urology service saw the patient today on 08/20/2016, and plans are to leave the Moran in place for approximately 1 week and then follow up in the urology office for further care. He was progressing well with his physical therapy and otherwise remaining stable. Urine culture was pending upon discharge and it was felt that he be transferred to [facility] facility for further physical therapy and care. Follow up with Dr. Nicholas in 10-14 days. Follow up with Dr. Khan in 1 week. Discharge Instructions Please refer to the electronic Patient Visit Report (Discharge Instructions) for additional information.
== END 2016-08-20 10:58 | DRG 470 ==
LOC: C.ACU 06:12 → C.3E 07:10 → ENRESERV 10:44
PROC: 0SRC0J9 Replacement of Right Knee Joint with Synthetic Substitute, Cemented, Open Approach (ICD-10-PCS; principal; 2016-08-16 08:00)
DX: M17.11 Unilateral primary osteoarthritis, right knee (principal); I48.91 Unspecified atrial fibrillation; E78.5 Hyperlipidemia, unspecified; N40.1 Benign prostatic hyperplasia with lower urinary tract symptoms; R35.0 Frequency of micturition; R33.8 Other retention of urine; I25.10 Atherosclerotic heart disease of native coronary artery without angina pectoris; E78.00 Pure hypercholesterolemia, unspecified; Z87.442 Personal history of urinary calculi; Z88.0 Allergy status to penicillin; Z79.899 Other long term (current) drug therapy; Z80.9 Family history of malignant neoplasm, unspecified; Z80.8 Family history of malignant neoplasm of other organs or systems; Z80.42 Family history of malignant neoplasm of prostate

== ENCOUNTER → 2016-09-07 | Outpatient (CLI) | payer BC, OTHER ==
[~2016-09-07] MED LIST changes: +ACET-24 PO; -ACET325T96 PO; -ACETAMINOPHEN 500 MG TAB PO SCH; +CLC100 PO; -CLINDAMYCIN 600 MG/54 ML D5W 54 ML IV SCH; -CeleBREX 200 MG CAP PO SCH; -DEXAMETHASONE 4 MG TAB PO SCH; +DLCS PR; -FAMOTIDINE 20 MG TAB PO SCH; -GABAPENTIN 300 MG CAP PO SCH; -LACTATED RINGER'S 1000ML 1,000 ML IV SCH; -LACTATED RINGER'S 1000ML 500 ML IV ONE; -LACTATED RINGER'S 1000ML IV SCH; -METOCLOPRAMIDE HCL 10 MG TAB PO SCH; -OXYCODONE HCL 10 MG TABCR (OXYCONTIN) PO SCH; +PRT40 PO; -ROPIVACAINE 5MG/ML 30 ML 150 MG, BUPIVACAINE/EPINEPHR 0.5% MPF 30 ML, KETOROLAC TROMETH... INFIL SCH; +RXC5 PO
[2016-09-07 13:19] LABS: BASO % 0.4 %; BASO ABS # 0.02 K/uL (0-0.2); COMPLETE YES; EOS % 7.3 %; IG% 0.4 %; LYMPH % 16.8 %; LYMPH ABS # 0.89 K/uL (1.2-3.4); MEAN CELL VOLUME 98.8 fL (80-100); MEAN CORPUSCULAR HEMOGLOBIN 30.8 pg (25-34); MEAN CORPUSCULAR HGB CONC 31.2 g/dl (32-36); MONO % 12.8 %; NEUT % 62.3 %; PLATELET COUNT 306 K/uL (130-400); RED BLOOD COUNT 3.44 M/uL (4.7-6.1); WHITE BLOOD COUNT 5.31 K/uL (4.8-10.8)
[2016-09-07 13:33] LABS: INR 2.8 (0.9-1.1); PROTHROMBIN TIME (PATIENT) 30.9 SECONDS (9.0-12.0)
[2016-09-07 13:45] LABS: BLOOD UREA NITROGEN 34 mg/dl (7-18); BUN/CREATININE RATIO 38.8 (10-20); CALCIUM 8.7 mg/dl (8.5-10.1); CARBON DIOXIDE 26 mmol/L (21-32); CHLORIDE 111 mmol/L (98-107); CREATININE 0.88 mg/dl (0.60-1.40); GLUCOSE 79 mg/dl (70-99); POTASSIUM 4.2 mmol/L (3.5-5.1); SODIUM 143 mmol/L (136-145)
== END | disposition home or self-care (01) ==
LOC: C.LABMFLN 08:23
PROVIDERS: ATTEND Family Medicine
DX: I48.92 Unspecified atrial flutter (principal); I95.9 Hypotension, unspecified

== ENCOUNTER → 2017-01-09 | Outpatient (CLI) | payer BC ==
[~2017-01-09] MED LIST changes: +ALFU10TA2 PO; -ALFU10TA30 PO
[2017-01-09 12:44] LABS: BASO % 0.3 %; BASO ABS # 0.01 K/uL (0-0.2); COMPLETE YES; IG% 0.3 %; LYMPH ABS # 0.58 K/uL (1.2-3.4); MEAN CELL VOLUME 92.6 fL (80-100); MEAN CORPUSCULAR HEMOGLOBIN 28.9 pg (25-34); MEAN CORPUSCULAR HGB CONC 31.2 g/dl (32-36); MEAN PLATELET VOLUME 11.2 fL (7.4-10.4); MONO % 13.7 %; NEUT % 69.7 %; PLATELET COUNT 127 K/uL (130-400); RED BLOOD COUNT 3.67 M/uL (4.7-6.1); WHITE BLOOD COUNT 3.87 K/uL (4.8-10.8)
[2017-01-09 13:53] LABS: ALT/SGPT 43 U/L (12-78); BLOOD UREA NITROGEN 28 mg/dl (7-18); BUN/CREATININE RATIO 36.9 (10-20); CALCIUM 8.5 mg/dl (8.5-10.1); CARBON DIOXIDE 23 mmol/L (21-32); CHLORIDE 113 mmol/L (98-107); CREATININE 0.77 mg/dl (0.60-1.40); GLUCOSE 83 mg/dl (70-99); POTASSIUM 4.1 mmol/L (3.5-5.1); SODIUM 144 mmol/L (136-145)
[2017-01-09 13:57] LABS: ALB/GLOB RATIO 1.1 (0.9-2); ALKALINE PHOSPHATASE 100 U/L (45-117); AST/SGOT 33 U/L (15-37); CHOLESTEROL 78 mg/dl (0-200); CHOLESTEROL/HDL RATIO 1.5; HDL CHOLESTEROL 51 mg/dl; LDL CHOLESTEROL CALCULATED 20 mg/dl; TOTAL IRON BINDING CAPACITY 298 mcg/dl (250-450); TRIGLYCERIDES 36 mg/dl (0-150); VERY LOW DENSITY LIPOPROT CALC 7 mg/dl
== END | disposition home or self-care (01) ==
LOC: C.LABMFLN 10:24
PROVIDERS: ATTEND Family Medicine
DX: I48.92 Unspecified atrial flutter (principal); E78.00 Pure hypercholesterolemia, unspecified; I42.9 Cardiomyopathy, unspecified

== ENCOUNTER → 2017-01-16 | Outpatient (CLI) | payer BC ==
[2017-01-16 18:14] LABS: BASO % 0.3 %; BASO ABS # 0.01 K/uL (0-0.2); COMPLETE YES; EOS % 1.5 %; HEMATOCRIT 34.9 % (42-52); IG% 0.3 %; LYMPH % 17.6 %; LYMPH ABS # 0.69 K/uL (1.2-3.4); MEAN CELL VOLUME 94.6 fL (80-100); MEAN CORPUSCULAR HEMOGLOBIN 28.7 pg (25-34); MEAN CORPUSCULAR HGB CONC 30.4 g/dl (32-36); MEAN PLATELET VOLUME 11.5 fL (7.4-10.4); MONO % 13.3 %; PLATELET COUNT 121 K/uL (130-400); RED BLOOD COUNT 3.69 M/uL (4.7-6.1); WHITE BLOOD COUNT 3.91 K/uL (4.8-10.8)
[2017-01-16 18:24] LABS: BLOOD UREA NITROGEN 28 mg/dl (7-18); CALCIUM 8.5 mg/dl (8.5-10.1); CARBON DIOXIDE 26 mmol/L (21-32); CHLORIDE 113 mmol/L (98-107); CREATININE 1.02 mg/dl (0.60-1.40); GLUCOSE 99 mg/dl (70-99); POTASSIUM 4.1 mmol/L (3.5-5.1); SODIUM 145 mmol/L (136-145)
== END | disposition home or self-care (01) ==
LOC: C.LABMFLN 11:14
PROVIDERS: ATTEND Family Medicine
DX: I48.92 Unspecified atrial flutter (principal); I50.9 Heart failure, unspecified; R60.0 Localized edema

== ENCOUNTER → 2017-01-24 | Outpatient (CLI) | payer BC ==
[2017-01-24 18:04] LABS: BLOOD UREA NITROGEN 26 mg/dl (7-18); BUN/CREATININE RATIO 26.4 (10-20); CALCIUM 8.5 mg/dl (8.5-10.1); CARBON DIOXIDE 28 mmol/L (21-32); CHLORIDE 108 mmol/L (98-107); CREATININE 0.98 mg/dl (0.60-1.40); GLUCOSE 101 mg/dl (70-99); MAGNESIUM 2.2 mg/dl (1.8-2.4); POTASSIUM 3.8 mmol/L (3.5-5.1); SODIUM 139 mmol/L (136-145)
== END | disposition home or self-care (01) ==
LOC: C.LABMFLN 11:38
PROVIDERS: ATTEND Family Medicine
DX: I50.9 Heart failure, unspecified (principal)

== ENCOUNTER → 2017-02-19 | Outpatient (CLI) | payer BC ==
[~2017-02-19] MED LIST changes: +ASPI-232 PO; +CARV3.122 PO; +DUTA0.5C PO; +FERR1TAB23; +FRS/40 PO; +PANT1TAB4 PO; +POTA10CA28 PO; -PRT40 PO
[2017-02-19 18:02] LABS: HEMATOCRIT 36.3 % (42-52); HEMOGLOBIN 11.1 g/dL (14.0-18.0); MEAN CELL VOLUME 94.8 fL (80-100); MEAN CORPUSCULAR HGB CONC 30.6 g/dl (32-36); MEAN PLATELET VOLUME 11.8 fL (7.4-10.4); PLATELET COUNT 140 K/uL (130-400); RED CELL DISTRIBUTION WIDTH CV 17.1 % (11.5-14.5); RED CELL DISTRIBUTION WIDTH SD 59.4 fL (36.4-46.3); WHITE BLOOD COUNT 4.65 K/uL (4.8-10.8)
[2017-02-19 19:09] LABS: BLOOD UREA NITROGEN 29 mg/dl (7-18); CALCIUM 8.8 mg/dl (8.5-10.1); CARBON DIOXIDE 28 mmol/L (21-32); CREATININE 0.98 mg/dl (0.60-1.40); GLUCOSE 80 mg/dl (70-99); POTASSIUM 4.3 mmol/L (3.5-5.1); SODIUM 141 mmol/L (136-145)
== END | disposition home or self-care (01) ==
LOC: C.LABMFLN 11:58
PROVIDERS: ATTEND Internal Medicine Cardiovascular Disease
DX: I48.92 Unspecified atrial flutter (principal); I25.10 Atherosclerotic heart disease of native coronary artery without angina pectoris; I42.9 Cardiomyopathy, unspecified; I50.22 Chronic systolic (congestive) heart failure

== ENCOUNTER → 2017-02-28 | Day surgery (SDC) | payer BC ==
[~2017-02-28] VITALS: Ht 182.9 cm; Wt 90.0 kg
[~2017-02-28] MED LIST changes: +ACETAMINOPHEN 325 MG TAB PO PRN; +ASPIRIN 81 MG CHEW ONE; +FENTANYL CITRATE INJ 50 MCG/1 ML 2 ML VIAL ONE; +HEPARIN SOD (PORCINE) 1000 UNIT/ML 10 ML VIAL ONE; +MIDAZOLAM HCL 1 MG/ML 2ML VIAL ONE; +NITROGLYCERIN 2% OINTMENT 30GM TUBE EXT ONE; +NITROGLYCERIN/D5W 100MCG/ML 20ML SYR ONE; +NiCARDipine HCL INJ 2.5 MG/ML 10 ML AMP ONE; +ONDANSETRON INJ 2 MG/ML 2 ML VIAL IV PRN; -PANT1TAB4 PO; +PRT40 PO; +SODIUM CHLORIDE 0.9% 1000ML 1,000 ML IV SCH
[2017-02-28 11:25] VITALS: BP 123/72; PULSE 58; TEMP 36.8; O2SAT 96; Ht 182.9 cm; Wt 90.0 kg
--- NOTE | 2017-02-28 11:46 | Pre Sedation Assessment ---
Pre Sedation Assessment General Date of Sedation: Feb 28, 2017. Vital Signs Past 12 Hours Date Time Temp Pulse Resp B/P (MAP) Pulse Ox O2 Delivery O2 Flow Rate FiO2 02/28/17 11:25 36.8 58 16 123/72 (89) 96 Room Air Review Cardiovascular: + irregularly irregular Lungs: lungs clear Pre-Sedation Airway Assessment Smoking Status: Never Smoker Hx of Sleep Apnea: No Short Thick Neck: No Thyro-mental Distance: > 3 Finger Breadths Oral Cavity: WNL Mallampati Classification: Class III ASA Classification: Class IV NPO Status Date of Last Intake of Fluids: Feb 27, 2017 Time of Last Intake of Fluids: 1900 Date of Last Intake of Solids: Feb 27, 2017 Time of Last Intake of Solids: 1899 Procedure Planning Contraindications for Sedation: None Current Medications Reviewed: Yes Notes The planned sedation has been discussed with the patient. Informed Consent was obtained. I have identified the patient, determined the appropriateness of sedation and have assessed the patient immediately prior to the procedure. All medicine(s) and interventions are by my order.
--- NOTE | 2017-02-28 15:33 | Cardiac Catheterization ---
Procedure Note Procedure Date Feb 28, 2017. Pre-Procedure Diagnosis CAD, CHF, Cardiomyopathy AUC Score 7 Post-Procedure Diagnosis Severe CAD Procedure(s) Performed Coronary Angiography, Left Heart Cath, Right Heart Cath, Radial Artery Angiography Trackman Dr. Hinds Developing Machine Operator(s) Ronald Estimated Blood Loss < 30 ml Medication(s) Nicardipine, Lidocaine 1% Summary of Findings Left heart catheterization: 1. Left main coronary artery: In the proximal left main coronary artery, there is a lucency it extends across 60-80% of the vessel, suspicious for a napkin ring lesion. GREGG 3 flow. 2. Left anterior descending: The ostial LAD has a 50-60% stenosis. Proximal LAD 50-60% stenosis. Mid LAD 50-70% stenosis at the bifurcation of a medium caliber diagonal vessel. GREGG 3 flow throughout the LAD. 3. Circumflex: The circumflex is a nondominant vessel. Proximal circumflex mild aneurysmal changes. Mid circumflex 40%. Distal circumflex 50-70%. Medium caliber OM1 without significant CAD. 4. Ramus intermedius: Medium to large caliber ramus intermedius with proximal 30-40% stenosis. 5. Right coronary artery: The RCA is large and dominant. Mid RCA 30%. Mid to distal RCA diffuse 40% narrowing. PDA and PL without significant CAD. 6. Calcifications noted within the LM CA, LAD, and circumflex under angiography. Left heart catheterization: 1. Left ventriculography was not performed as patient had recent echocardiogram. 2. No significant aortic stenosis. 3. Mildly elevated LVEDP; 18 mmHg. Right heart catheterization: 1. Pulmonary capillary wedge pressure was unable to be performed as the right heart catheter was fully advanced, without wedge. 2. Mild pulmonary hypertension. PA pressure 40/20 with a mean of 27mmHg. 3. Right ventricular pressure 40/5 with RV EDP of 10mmHg. 4. Right atrial pressure elevated. A-wave 15; V-wave 15; mean pressure 12mmHg. 5. Cardiac output via thermodilution was 4.7 L/min, with a cardiac index of 2.2 L/min/m2. Sedation start time: 1:20 p.m. Sedation end time: 2:10 p.m. Procedural details: 1. Right heart catheter was unable to be easily advanced via the right brachiocephalic vein near the axilla. Wire was unable to be advanced easily. Angiography was used which demonstrated acute angles, and the wire was able to easily pass to complete right heart catheterization. 2. Angiography of the right radial artery was also performed demonstrating tortuosity. Coronary angiography was able to be completed via the right radial artery without known complication. Impression: 1. Severe CAD involving ostial LM CA, with moderate to severe CAD involving the ostial, proximal, and mid LAD, as well as ostial OM1. 2. Nonobstructive CAD involving the mid circumflex, mid RCA, and mid to distal RCA. 3. Mildly elevated left-sided filling pressures. 4. Mild pulmonary hypertension, likely secondary to left heart failure. 5. No significant aortic stenosis. Plan: 1. Coronary angiography images were reviewed with Dr. Cates of [facility] CT surgery. Consultation with CT surgery is recommended. Appointment is being scheduled with Dr. Cates at [facility]. 2. Continue medical therapy. Hemodynamics Rest Ao: 119/82 Final Ao: 120/84 LV: 122/16/18 Recommendations CABG (CABG evaluation) Specimens None Radiation Exposure (mGy) 1489 mGy. 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 ACC Data Cardiac Status Clinical evaluation leading to the procedure CAD Presntation: No Sxs, no angina Anginal Classification: No symptoms Heart Failure: NYHA Class: CCS III Cardiogenic Shock w/in 24Hrs: No Cardiac Arrest w/in 24Hrs: No Imaging studies past 6 months: Yes Stress studies past 6 months: No Standard Exercise Stress Test: No Stress Echocardiogram: No Stress Testing w/SPECT MPI: No Cardiac CTA: No Coronary Anatomy Dominant: Right Left Main (% Stenosis): Proximal (60-80%) LAD (% Stenosis): Ostial (50-60%), Proximal (50-60%), Mid (50-70%) D1 (% Stenosis): Normal Circumflex (% Stenosis): Mid (40%), Distal (50-70%) OM1 (% Stenosis): Normal RCA (% Stenosis): Mid (30%), Distal (40%) R PDA (% Stenosis): Normal R PL1 (% Stenosis): Normal Ramus (% Stenosis): Proximal (30-40%) Left Ventricular Angiography EF (%): n/a Diagnostic Physician's Name: Kadeem Hinds MD Status: Elective Closure Device Percutaneous Entry Location: Radial Closure Device: Radial Band Recommendations: CABG (Evaluation with CT surgery)
--- NOTE | 2017-02-28 16:00 | Discharge Instructions ---
Discharge Instructions Date of Service Feb 28, 2017. Visit Reason for Visit: cardiac catheterization Discharge Discharge Diagnosis / Problem: 1. Coronary artery disease. 2. Heart failure 3. Cardiomyopathy Discharge Goals Goal(s): Diagnostic testing Medications Restart Stopped Medication(s): Resume all of your medications tonight, including coumadin. Activity Recommendations Activity Limitations: per Instructions/Follow-up section Anesthesia . Post Anesthesia Instructions: If you have had General Anesthesia or IV Sedation: * Do not drive today. * Resume driving when surgeon permits. * Do not make important decisions or sign legal documents today. * Call surgeon for: 1. Temperature elevations greater than 101 degrees F. 2. Uncontrollable pain. 3. Excessive bleeding. 4. Persistent nausea and vomiting. 5. Medication intolerance (nausea, vomiting or rash). * For nausea and vomiting use only clear liquids such as: tea, soda, bouillon until nausea subsides, then gradually increase diet as tolerated. * If you have any concerns or questions, call your surgeon's office. If physician is unavailable and it is an emergency, call 911 or go to the nearest emergency room. . Instructions / Follow-Up Instructions / Follow-Up Follow Up: 1. CT surgery at [facility] with Dr. Cates. Call [phone] for questions/directions. 2. Dr. Hinds's office will contact you for follow up in approximately 4 weeks to adjust medications as necessary. ACTIVITY RECOMMENDATIONS: Excess manipulation of the wrist should be avoided for the next 24-48 hours. * No lifting over 2 pounds (approximately a 1/2 gallon of milk) with the utilized arm for 24 hours. * No strenuous activity such as bowling or tennis for 3 days. * Keep the site of the procedure covered with a bandage for 24 hours. *You may shower the day after the procedure. Do not take a tub bath or submerge the puncture site in water for the next 3 days. *Do not operate any motorized equipment for 3 days. SPECIAL CARE INSTRUCTIONS: The site may be slightly bruised and sore following your procedure. Should any of the following occur, contact the DrBrett who performed your procedure. 1. Redness/inflammation, swelling, chills, or fever, or colored drainage at procedure site within 3-7 days after your procedure. 2. Coldness, discoloration, ongoing numbness, severe pain, or swelling. Expect mild tingling of hand and tenderness at the puncture site for up to three days. If this persists beyond three days, or other symptoms develop, notify the Dr. who performed your procedure. BLEEDING: If the procedure site on your wrist begins to bleed, do not panic 1. Place 1 or 2 fingers firmly just slightly above the insertion site to stop the bleeding. You may be able to feel your pulse as you hold pressure. 2. Lift your finger after 5 minutes to see if the bleeding has stopped. 3. Once the bleeding has stopped, gently wipe the wrist area clean with a bandage. * If the bleeding from your wrist does not stop after 10 minutes, or if there is a large amount of bleeding or spurting, call 911 (do not drive yourself to the hospital). SKIN IRRITATION: * You may experience some redness and/or swelling in the area where radiation was administered. If any skin irritation occurs, please contact your family physician. FOLLOW UP VISIT: Keep any scheduled doctor appointments. Diet Recommendations Recommended Home Diet: low sodium Procedures Procedures Performed: 1. Coronary angiography 2. Left heart catheterization 3. Right heart catheterization Pending Studies Studies pending at discharge: no Medical Emergencies . Who to Call and When: Medical Emergencies: If at any time you feel your situation is an emergency, please call 911 immediately. . Non-Emergent Contact Non-Emergency issues call your: Realtime Reporter . . "Provider Documentation" section prepared by Kadeem Stuart. .
[2017-02-28 16:45] VITALS: PULSE 63; O2SAT 96
== END | disposition home or self-care (01) ==
LOC: C.CATH 09:59
PROVIDERS: ATTEND Internal Medicine Cardiovascular Disease
DX: I25.10 Atherosclerotic heart disease of native coronary artery without angina pectoris (principal); I50.22 Chronic systolic (congestive) heart failure; I42.9 Cardiomyopathy, unspecified; I48.91 Unspecified atrial fibrillation; E78.00 Pure hypercholesterolemia, unspecified; I71.2 Thoracic aortic aneurysm, without rupture; I48.92 Unspecified atrial flutter; N40.0 Benign prostatic hyperplasia without lower urinary tract symptoms; N13.8 Other obstructive and reflux uropathy; I10 Essential (primary) hypertension

== ENCOUNTER → 2017-03-15 | Outpatient (CLI) | payer BC ==
[~2017-03-15] MED LIST changes: -ACET-24 PO; -ACETAMINOPHEN 325 MG TAB PO PRN; -ASPIRIN 81 MG CHEW ONE; -CLC100 PO; -DLCS PR; -FENTANYL CITRATE INJ 50 MCG/1 ML 2 ML VIAL ONE; -HEPARIN SOD (PORCINE) 1000 UNIT/ML 10 ML VIAL ONE; -MIDAZOLAM HCL 1 MG/ML 2ML VIAL ONE; -NITROGLYCERIN 2% OINTMENT 30GM TUBE EXT ONE; -NITROGLYCERIN/D5W 100MCG/ML 20ML SYR ONE; -NiCARDipine HCL INJ 2.5 MG/ML 10 ML AMP ONE; -ONDANSETRON INJ 2 MG/ML 2 ML VIAL IV PRN; -PRT40 PO; -RXC5 PO; -SAW450CA5 PO; -SODIUM CHLORIDE 0.9% 1000ML 1,000 ML IV SCH
[2017-03-15 13:35] LABS: BLOOD UREA NITROGEN 25 mg/dl (7-18); CALCIUM 8.6 mg/dl (8.5-10.1); CARBON DIOXIDE 29 mmol/L (21-32); GLUCOSE 101 mg/dl (70-99); SODIUM 138 mmol/L (136-145)
== END | disposition home or self-care (01) ==
LOC: C.LABMFLN 09:45
PROVIDERS: ATTEND Family Medicine
DX: I48.92 Unspecified atrial flutter (principal)

== ENCOUNTER → 2017-04-02 | Outpatient (CLI) | payer BC ==
[2017-04-02 13:17] LABS: BLOOD UREA NITROGEN 27 mg/dl (7-18); CALCIUM 8.7 mg/dl (8.5-10.1); CARBON DIOXIDE 26 mmol/L (21-32); CREATININE 0.89 mg/dl (0.60-1.40); GLUCOSE 88 mg/dl (70-99); SODIUM 143 mmol/L (136-145)
== END | disposition home or self-care (01) ==
LOC: C.LABMFLN 08:37
PROVIDERS: ATTEND Internal Medicine Cardiovascular Disease
DX: R35.0 Frequency of micturition (principal); I50.22 Chronic systolic (congestive) heart failure

== ENCOUNTER → 2017-09-04 | Outpatient (CLI) | payer BC ==
[2017-09-04 12:52] LABS: BASO % 0.2 %; BASO ABS # 0.01 K/uL (0-0.2); EOS ABS # 0.14 K/uL (0-0.5); HEMATOCRIT 38.2 % (42-52); HEMOGLOBIN 12.1 g/dL (14.0-18.0); LYMPH % 19.5 %; MEAN CELL VOLUME 96.5 fL (80-100); MEAN CORPUSCULAR HEMOGLOBIN 30.6 pg (25-34); MEAN CORPUSCULAR HGB CONC 31.7 g/dl (32-36); MEAN PLATELET VOLUME 11.1 fL (7.4-10.4); MONO % 11.5 %; MONO ABS # 0.53 K/uL (0.11-0.59); NEUT % 65.8 %; NEUT ABS # 3.03 K/uL (1.4-6.5); PLATELET COUNT 151 K/uL (130-400); RED CELL DISTRIBUTION WIDTH CV 14.3 % (11.5-14.5); RED CELL DISTRIBUTION WIDTH SD 50.2 fL (36.4-46.3); WHITE BLOOD COUNT 4.61 K/uL (4.8-10.8)
[2017-09-04 13:39] LABS: ALBUMIN 3.6 gm/dl (3.4-5.0); ALKALINE PHOSPHATASE 108 U/L (45-117); ALT/SGPT 29 U/L (12-78); AST/SGOT 28 U/L (15-37); BLOOD UREA NITROGEN 26 mg/dl (7-18); CALCIUM 8.6 mg/dl (8.5-10.1); CARBON DIOXIDE 25 mmol/L (21-32); CHOLESTEROL 105 mg/dl (0-200); GLUCOSE 91 mg/dl (70-99); LDL CHOLESTEROL CALCULATED 47 mg/dl; POTASSIUM 3.9 mmol/L (3.5-5.1); SODIUM 143 mmol/L (136-145)
== END | disposition home or self-care (01) ==
LOC: C.LABMFLN 10:37
PROVIDERS: ATTEND Family Medicine
DX: Z00.00 Encounter for general adult medical examination without abnormal findings (principal); E78.00 Pure hypercholesterolemia, unspecified; R33.9 Retention of urine, unspecified; I48.91 Unspecified atrial fibrillation